=== PATIENT | female | born 1980 | race Caucasian/White ===

== ENCOUNTER 2017-12-05 08:29 | Emergency (ER) | payer MEDICAID ==
[~2017-12-05] VITALS: Ht 165.1 cm; Wt 94.5 kg
[2017-12-05 08:36] VITALS: Ht 165.1 cm; Wt 94.5 kg
[2017-12-05] MEDS ORDERED: REMERON15 MG PO (08:36)
[2017-12-05] MEDS ORDERED: ZESTRIL40 MG (08:37)
[2017-12-05] MEDS ORDERED: KLONOPIN1 MG PO (08:37)
[2017-12-05] MEDS ORDERED: NORCO 7.5/325 T1 TA1 PO (09:49)
[2017-12-05 10:10] VITALS: BP 103/57
== END 2017-12-05 10:11 | disposition home or self-care (01) ==
LOC: D.ER 08:29
DX: S93.402A Sprain of unspecified ligament of left ankle, initial encounter (principal); X50.1XXA Overexertion from prolonged static or awkward postures, initial encounter; Y93.89 Activity, other specified; Y92.012 Bathroom of single-family (private) house as the place of occurrence of the external cause; I10 Essential (primary) hypertension; F31.9 Bipolar disorder, unspecified; F17.200 Nicotine dependence, unspecified, uncomplicated